=== PATIENT | female | born 1945 | race Caucasian/White ===

== ENCOUNTER → 2018-06-22 12:26 | Outpatient (CLI) | payer MEDICARE, SELFPAY ==
--- NOTE | 2018-06-22 12:33 | XR_ITS ---
XR DEXA axial skeleton HISTORY: ITS.REASON: POST MENOPAUSAL ORDERING PHYSICIAN: Halie Ochoa PATIENT AGE: 73 years COMPARISON: None FINDINGS: The BMD measured at the AP Spine L1-L4 is 0.855 g/cm squared with a T score of -2.7 . This is considered Osteoporotic according to the World Health Organization criteria. Fracture risk is High. Treatment is advised. IMPRESSION: Osteoporosis with high fracture risk. Treatment suggested. Recommend follow-up exam June 2019
--- NOTE | 2018-06-22 12:42 | MM_ITS ---
MM Dig screening mamm BI w/CAD ORDERING PHYSICIAN : Halie Ochoa PATIENT AGE: 73 years GENDER: Female COMPARISON: No prior for comparison Previous studies 20 years ago have been purged INDICATION: ITS.REASON: SCREENING 73-year-old. No hormones. No new complaints. Family history. Sister with breast cancer age 60 TECHNIQUE: Standard CC and MLO images were obtained. R2 CAD reviewed. FINDINGS: Moderate density breast. Fibroglandular elements seen at the central breast appear recently symmetric and with no dominant mass nor suspicious calcifications. No prior studies for comparison but no suspicious areas identified. It minimal vascular calcifications bilaterally but follow-up in one year adequate but would be encouraged and emphasized to better confirm stable baseline character . IMPRESSION: Baseline mammogram-with no focal areas of significant concern. What appear to be benign vascular calcifications bilaterally. Would encourage bilateral follow-up in one year, in order to additionally confirm stable baseline character BI-RADS Category: 2 Benign Finding(s) RECOMMENDED FOLLOW-UP: 1YR 1 YEAR FOLLOW-UP (A letter has been sent to the patient regarding results of the study.)
== END ==
PROVIDERS: Family Provider Nurse Practitioner; PCP Nurse Practitioner; Visit Provider Nurse Practitioner
DX: Z12.31 Encounter for screening mammogram for malignant neoplasm of breast (principal); Z13.820 Encounter for screening for osteoporosis; Z78.0 Asymptomatic menopausal state
CPT/HCPCS: 77067; 77080

== ENCOUNTER → 2018-07-13 10:13 | Outpatient (CLI) | payer MEDICARE, SELFPAY ==
[2018-07-13 10:33] LABS: Basophils # 0.1 K/mm3 (0-0.2); Basophils % 0.9 % (0.1-2.0); Eosinophils # 0.2 K/mm3 (0.0-0.4); Eosinophils % 2.8 % (0.1-12.0); Hematocrit 41.8 % (37.0-47.0); Hemoglobin 13.7 g/dL (12.2-16.2); Lymphocytes # 1.5 K/mm3 (0.7-4.5); Lymphocytes % 20.5 K/mm3 (10-50); Mean Corpuscular HGB Conc 32.7 g/dL (31.8-35.4); Mean Corpuscular Hemoglobin 31.2 pg (27.0-31.2); Mean Corpuscular Volume 95.5 fl (81-99); Monocytes # 0.5 K/mm3 (0.1-1.0); Monocytes % 6.3 % (1.7-9.3); Neutrophils # 5.2 K/mm3 (1.8-7.8); Neutrophils % 69.5 % (37.0-80.0); Platelet Count 189 K/mm3 (142-424); Red Blood Count 4.38 M/mm3 (4.20-5.40); Red Cell Distribution Width 14.2 % (11.5-17.5); White Blood Count 7.4 K/mm3 (4.8-10.8)
[2018-07-13 11:16] LABS: Anion Gap 12.6 mEq/L (5-15); Blood Urea Nitrogen 30 mg/dL (7-18); Calcium 8.9 mg/dL (8.5-10.1); Carbon Dioxide 30 mmol/L (21.0-32.0); Chloride 107 mmol/L (98-107); Creatinine,Serum 1.16 mg/dL (0.55-1.02); Estimated Glomerular Filt Rate 46 ml/min (>60); GFR (African American) 55 ML/MIN (>60); Glucose 105 mg/dL (74-106); Phenytoin (Dilantin) 19.9 ug/mL (10-20); Potassium 4.6 mmoL/L (3.5-5.1); Sodium 145 mmol/L (136-145)
== END ==
PROVIDERS: Family Provider Nurse Practitioner; PCP Nurse Practitioner; Visit Provider Surgery
DX: Z12.11 Encounter for screening for malignant neoplasm of colon (principal); Z01.818 Encounter for other preprocedural examination
CPT/HCPCS: 36415; 80048; 80185; 85025

== ENCOUNTER 2018-08-05 20:03 | Observation (INO) ==
[2018-08-05 20:27] LABS: Basophils % 0.6 % (0.1-2.0); Eosinophils # 0.2 K/mm3 (0.0-0.4); Eosinophils % 2.5 % (0.1-12.0); Hematocrit 41.4 % (37.0-47.0); Hemoglobin 13.6 g/dL (12.2-16.2); Lymphocytes # 1.7 K/mm3 (0.7-4.5); Mean Corpuscular Hemoglobin 30.8 pg (27.0-31.2); Mean Corpuscular Volume 93.5 fl (81-99); Mean Platelet Volume 7.8 fl (7.4-10.4); Monocytes # 0.5 K/mm3 (0.1-1.0); Monocytes % 6.2 % (1.7-9.3); Neutrophils # 5.2 K/mm3 (1.8-7.8); Neutrophils % 68.8 % (37.0-80.0); Platelet Count 201 K/mm3 (142-424); Red Blood Count 4.43 M/mm3 (4.20-5.40); Red Cell Distribution Width 14.2 % (11.5-17.5); White Blood Count 7.6 K/mm3 (4.8-10.8)
[2018-08-05 20:41] LABS: Anion Gap 11.6 mEq/L (5-15); Blood Urea Nitrogen 7 mg/dL (7-18); Calcium 9.4 mg/dL (8.5-10.1); Carbon Dioxide 31 mmol/L (21.0-32.0); Chloride 99 mmol/L (98-107); Glucose 110 mg/dL (74-106); Phenytoin (Dilantin) 12.6 ug/mL (10-20); Potassium 3.6 mmoL/L (3.5-5.1); Sodium 138 mmol/L (136-145)
--- NOTE | 2018-08-05 21:01 | Emergency Department Note ---
ED Disposition Clinical Impression: Chest pain Qualifiers: Chest pain type: precordial pain Qualified Code(s): R07.2 - Precordial pain Disposition: Admitted as Observation Condition on Discharge: Good Referrals: Renee Lagunas MD [Primary Care Provider] - - Critical Care Critical Care Time: No Attestation: On 08/05/18, the high probability of a clinically significant, sudden or life threatening deterioration of the following system(s) required my full and direct attention, intervention and personal management. The time I documented below is in addition to time spent performing reported procedures but includes the following listed in this critical care notation. Medical Decision Making - Medical Records Medical records reviewed: Yes: I reviewed the patient's medical records. - Anibal Inquiry Pt receiving controlled substance: No Vital Signs: 08/05/18 20:04 08/05/18 20:05 08/05/18 20:37 Temperature 97.8 F Temperature Source Oral Pulse Rate [Right] 66 66 65 Respiratory Rate 18 20 20 Blood Pressure [Right Arm] 128/58 L 132/62 130/80 Blood Pressure Mean [Right Arm] 81 85 96 Blood Pressure Source [Right Arm] Manual Cuff/ Auscultation Blood Pressure Position [Right Arm] Supine 02 Sat by Pulse Oximetry 98 99 96 Oxygen Delivery Method Room Air Room Air - Lab Data Lab results reviewed: Yes: I reviewed the patient's lab results. Lab Results 08/05/18 20:16: WBC 7.6, RBC 4.43, Hgb 13.6, Hct 41.4, MCV 93.5, MCH 30.8, MCHC 33.0, RDW 14.2, Plt Count 201, MPV 7.8, Neut % (Auto) 68.8, Lymph % (Auto) 22.0, [place] % (Auto) 6.2, Eos % (Auto) 2.5, Baso % (Auto) 0.6, Neut # (Auto) 5.2, Lymph # (Auto) 1.7, [place] # (Auto) 0.5, Eos # (Auto) 0.2, Baso # (Auto) 0.0 08/05/18 20:16: Sodium 138, Potassium 3.6, Chloride 99, Carbon Dioxide 31, Anion Gap 11.6, BUN 7, Creatinine 0.86, Estimated Creat Clear 48, Estimated GFR 65, Est GFR ( Amer) 78, Glucose 110 H, Calcium 9.4, Troponin I < 0.02, Phenytoin 12.6 Result diagrams: 08/05/18 20:16 08/05/18 20:16 Orders (Tests/Meds): ED MEDICATIONS Discontinued Medications Generic Name Dose Route Start Last Admin Trade Name Margot PRN Reason Stop Dose Admin Aspirin 325 mg 08/05/18 20:13 08/05/18 20:18 Aspirin 325mg Tablet PO 08/05/18 20:14 Not Given ONCE ONE Aspirin 324 mg 08/05/18 20:16 08/05/18 20:17 Aspirin 81mg Chewable Tablet PO 08/05/18 20:17 324 mg ONCE ONE Administration Nitroglycerin 1 gm 08/05/18 20:48 08/05/18 20:50 Nitroglycerin 1 Inch Oint Udp TD 08/05/18 20:49 1 gm ONCE ONE Administration ORDERS Category Date Time Status Chest XR 2 view (NOT portable) [XR chest 2V] Stat Exams 08/05/18 20:10 Taken 12-lead EKG Request [ECG Request by /Mila] Stat Y 08/05/18 20:13 Ordered - Radiology Data #1 Image(s): Chest Image Reviewed: Yes I reviewed the patient's radiology image Preliminary Findings: Abnormal (nonspecific) - ECG Data Tracing #1 Normal Sinus Rhythm: Yes Ischemic changes: non-specific ST-T wave changes - Physician Consults Physician Consulted: carmenza Reason -: Admission Chest Pain HPI - General Chief Complaint: Chest Pain Stated Complaint: Chest pain Time Seen by Provider: 08/05/18 20:58 Mode of Arrival: Ambulatory Source of Information: Patient, Relative, Medical Record Limitations: No Limitations Description of Symptoms (Recalled from ER Triage Doc. by RN): Pt c/o CP in the left side of her chest that started at 1830 today, pt states she was just sitting there and it started. Denies N/V, sweating, or dizziness. - History of Present Illness HPI narrative: acute onset of lt ant chest pain described as sharp - which is new with no known hx of card disease- no cough or sob MD complaint: chest pain indicative of cardiac Onset (ago): hour(s) Duration: constant Activity at onset: during rest Pain location: left chest Severity: moderate Quality: sharp Risk Factors for CAD: Hypertension, Family Hx of CAD Treatments prior to or on arrival for Cardiac Chest Pain: none - BENEDICT Score Non-Stemi Age of patient: 65 yrs or more Number of risk factors for CAD: Presence of less than 3 Prior coronary artery stenosis(seen in coronary angiography): Less than 50% ST-Segment deviation on ECG (more than 1 min): Absent Prior aspirin intake: No ASA in the last 7 days Severe anginal chest pain: No or one episode in last 24 hours Elevated cardiac markers(CK-MB or troponin): Absent Non-Stemi Risk Score: 1 - Related Data On Oral Contraceptives: No Home Medications Medication Instructions Recorded Confirmed acebutolol 200 mg capsule 200 mg PO DAILY 07/13/18 08/05/18 cyanocobalamin (vit B-12) ER 1,000 1,000 mcg PO DAILY 07/13/18 08/05/18 mcg tablet,extended release ergocalciferol (vitamin D2) 2,500 2,500 unit PO DAILY 07/13/18 08/05/18 unit capsule levothyroxine 25 mcg capsule 25 mcg PO DAILY 07/13/18 08/05/18 lisinopril 20 1 tab PO DAILY 07/13/18 08/05/18 mg-hydrochlorothiazide 12.5 mg tablet oxybutynin chloride ER 10 mg 10 mg PO DAILY 07/13/18 08/05/18 tablet,extended release 24 hr phenobarbital 32.4 mg tablet 32.4 mg PO DAILY PRN 07/13/18 08/05/18 phenytoin sodium extended 100 mg 100 mg PO TID 07/13/18 08/05/18 capsule vitamins A,C,V-eufc-sxxhjt 14,320 1 cap PO BID 07/13/18 08/05/18 unit-226 mg-200 unit capsule [id number]/Sod Sulf,Bicarb,Cl/KCl 240 ml PO Q10M 08/03/18 08/05/18 [Peg-3350 and Electrolytes Soln] Allergies Allergy/AdvReac Type Severity Reaction Status Date / Time atorvastatin [ATORVASTATIN] Allergy Unknown NA-NAUSEA/V Verified 08/03/18 09:03 OMITING hydrochlorothiazide Allergy Unknown Verified 08/03/18 09:03 [From MAXZIDE] triamterene [From MAXZIDE] Allergy Unknown Verified 08/03/18 09:[address] [facility] History I have reviewed the patient's past medical history: Yes Medical History: Reports:: Cerebrovascular Accident (2010), Hypertension, Seizures Other Medical History: Reports: Other (man-cpap hs) Laterality Cases: Bilateral: Lumpectomy Other Surgeries: Yes: Appendectomy, , Other - Social History Smoking Status: Former smoker Alcohol Intake: never Substance Use Type: denies use - Psychiatric History Expresses thoughts of harming self/others: None Suicide Plan Description: No Plan Family Hx:: No significant family history ROS Obtained: Yes All systems reviewed & no additional complaints - Constitutional Constitutional: Denies fever(s) - Eyes Eyes: Denies change in vision - ENT Ears, Nose, Mouth, and Throat: Denies sore throat - Cardiovascular Cardiovascular: Reports chest pain, Denies dyspnea - Respiratory Respiratory: No cough - Gastrointestinal Gastrointestingal: Denies: abdominal pain, nausea, vomiting - Genitourinary Female Genitourinary: Denies hematuria - Musculoskeletal Musculoskeletal: Denies joint pain, Denies neck pain - Integumentary/Breasts Skin/Breast: Denies rash - Neurologic Neurologic: Denies seizure-like activity Physical Exam - General General appearance: alert - Head Head exam: normocephalic - Eye Eye exam: Present: PERRL, EOMI - ENT ENT exam: Present: mucous membranes moist - Neck Neck exam: Present: trachea midline - Respiratory Respiratory exam: Present: normal lung sounds bilaterally - Cardiovascular Cardiovascular exam: Present: regular rate, systolic murmur, +S4 - Abdominal Exam Abdominal exam: Present: soft - Extremities Exam Extremities exam: Present: pedal edema. Absent: calf tenderness - Neurological Exam Neurological exam: Present: alert, oriented X3, CN II-XII intact - Psychiatric Psychiatric exam: Present: normal affect - Skin Skin exam: Absent: rash
[2018-08-06 07:02] LABS: Basophils % 0.3 % (0.1-2.0); Eosinophils # 0.1 K/mm3 (0.0-0.4); Eosinophils % 0.8 % (0.1-12.0); Hematocrit 30.9 % (37.0-47.0); Lymphocytes # 1.5 K/mm3 (0.7-4.5); Lymphocytes % 21.6 K/mm3 (10-50); Mean Corpuscular HGB Conc 32.8 g/dL (31.8-35.4); Mean Corpuscular Hemoglobin 31.2 pg (27.0-31.2); Mean Corpuscular Volume 94.9 fl (81-99); Monocytes # 0.4 K/mm3 (0.1-1.0); Monocytes % 6.4 % (1.7-9.3); Neutrophils # 4.8 K/mm3 (1.8-7.8); Neutrophils % 70.9 % (37.0-80.0); Platelet Count 179 K/mm3 (142-424); Red Blood Count 3.25 M/mm3 (4.20-5.40); Red Cell Distribution Width 14.2 % (11.5-17.5); White Blood Count 6.8 K/mm3 (4.8-10.8)
[2018-08-06 07:05] LABS: Anion Gap 9.7 mEq/L (5-15); Chol/HDL Ratio 2.1 (1-3.5); Potassium 3.7 mmoL/L (3.5-5.1)
--- NOTE | 2018-08-06 07:12 | History & Physical Report ---
*Admission Date: 08/06/18 *Chief complaint: Left sided chest pain *History of present illness: 73-year-old female with history of hypertension presented to the emergency department with complaint of left sided chest pain in the left lower anterior chest radiating around to the left ribs and up to the shoulder. Onset of pain was 6:30 PM. After pain did not resolve for 30 minutes patient assented to the emergency department. When patient lies flat pain resolves. We sits up pain returns. Pain is described as an ache. She is short of breath or diaphoresis. Patient did go colonoscopy yesterday and actually thought pains may be related to gas. She has not bowel movement nor flatus since her colonoscopy. She did not complain of any pain overnight but did endorse some pain earlier morning upon waking [facility] History I have reviewed the patient's past medical history: Yes Medical History: Reports:: Cerebrovascular Accident (2009), Hypertension, Seizures Denies:: Cancer, Diabetes Mellitus Type 1, Diabetes Mellitus Type 2, MRSA Other Medical History: Reports: Other (man-cpap hs) Laterality Cases: Bilateral: Lumpectomy Other Surgeries: Yes: Appendectomy, Colonoscopy, , Other Amputation: No - *Social History Educational Level: Completed Grade School Smoking Status: Former smoker Tobacco Type: cigarettes Alcohol Intake: never Substance Use Type: denies use Occupational Status: retired Housing: house Household Members: spouse - Psychiatric History Expresses thoughts of harming self/others: None Suicide Plan Description: No Plan *Family Hx:: No significant family history Review of Systems - Review of Systems Review of systems:: pertinent systems reviewed and negative unless documented below - Constitutional Denies anorexia, Denies body ache(s), Denies chills - *Cardiovascular Reports chest pain, Reports chest pain at rest, Denies shortness of breath, Denies shortness of breath with activity, Denies irregular heart rhythm, Denies lightheadedness, Denies shortness of breath when lying down, Denies rapid, pounding, or irregular heartbeat, Denies shortness of breath causing sudden awakening, Denies foot swelling, Denies radiating jaw, neck or arm pain, Denies fast heart rate - *Respiratory Denies chest congestion, Denies cough - *Gastrointestinal Denies abdominal pain, Denies belching, Denies bloating, Denies change in bowel habits, Denies heartburn - *Neurologic Denies seizure-like activity Meds Home Medications Medication Instructions Recorded Confirmed Type acebutolol 200 mg capsule 200 mg PO DAILY 07/13/18 08/05/18 History cyanocobalamin (vit B-12) ER 1,000 1,000 mcg PO DAILY 07/13/18 08/05/18 History mcg tablet,extended release ergocalciferol (vitamin D2) 2,500 2,500 unit PO DAILY 07/13/18 08/05/18 History unit capsule levothyroxine 25 mcg capsule 25 mcg PO DAILY 07/13/18 08/05/18 History lisinopril 20 1 tab PO DAILY 07/13/18 08/05/18 History mg-hydrochlorothiazide 12.5 mg tablet oxybutynin chloride ER 10 mg 10 mg PO DAILY 07/13/18 08/05/18 History tablet,extended release 24 hr phenobarbital 32.4 mg tablet 32.4 mg PO DAILY PRN 07/13/18 08/05/18 History phenytoin sodium extended 100 mg 100 mg PO TID 07/13/18 08/05/18 History capsule vitamins A,C,W-iisw-qxxdah 14,320 1 cap PO BID 07/13/18 08/05/18 History unit-226 mg-200 unit capsule [id number]/Sod Sulf,Bicarb,Cl/KCl 240 ml PO Q10M 08/03/18 08/05/18 History [Peg-3350 and Electrolytes Soln] Allergies Allergy/AdvReac Type Severity Reaction Status Date / Time atorvastatin [ATORVASTATIN] Allergy Unknown NA-NAUSEA/V Verified 08/03/18 09:03 OMITING hydrochlorothiazide Allergy Unknown Verified 08/03/18 09:03 [From MAXZIDE] triamterene [From MAXZIDE] Allergy Unknown Verified 08/03/18 09:03 Exam Vital signs and Labs for Last 24 Hours: Temp Pulse Resp BP Pulse Ox 97.8 F 72 14 85/37 L 88 L 08/06/18 05:06 08/06/18 05:06 08/06/18 05:06 08/06/18 05:06 08/06/18 05:06 Laboratory Results - last 24 hr 08/05/18 20:16: WBC 7.6, RBC 4.43, Hgb 13.6, Hct 41.4, MCV 93.5, MCH 30.8, MCHC 33.0, RDW 14.2, Plt Count 201, MPV 7.8, Neut % (Auto) 68.8, Lymph % (Auto) 22.0, [place] % (Auto) 6.2, Eos % (Auto) 2.5, Baso % (Auto) 0.6, Neut # (Auto) 5.2, Lymph # (Auto) 1.7, [place] # (Auto) 0.5, Eos # (Auto) 0.2, Baso # (Auto) 0.0 08/05/18 20:16: Sodium 138, Potassium 3.6, Chloride 99, Carbon Dioxide 31, Anion Gap 11.6, BUN 7, Creatinine 0.86, Estimated Creat Clear 48, Estimated GFR 65, Est GFR ( Amer) 78, Glucose 110 H, Calcium 9.4, Troponin I < 0.02, Phenytoin 12.6 08/06/18 00:15: Troponin I < 0.02 08/06/18 03:15: Troponin I < 0.02 I & O for Last 24 hours: Intake & Output 08/03/18 08/04/18 08/05/18 08/06/18 11:59 11:59 11:59 11:59 Weight 133 lb Narrative: Patient is awake and alert. ENT exam is grossly normal. Neck is without lymphadenopathy. Lungs are clear to auscultation. Heart has a regular rate and rhythm. Abdomen is soft, nontender, nondistended wall is nontender. Extremities are warm to the touch. There is no pedal edema. Neurologic exam is grossly normal. Assessment and Plan (1) Hypertension Current visit: Yes Status: Acute Category: Medical Code(s): I10 - Essent ial (primary) hypertension (2) Chest pain Current visit: Yes Status: Acute Qualifiers: Chest pain type: precordial pain Qualified Code(s): R07.2 - Precordial pain Category: Medical Code(s): R07.9 - Chest pain, unspecified - Assessment and plan all Dx Assessment and Plan for all problems:: 1. Patient is ruled out for IA. Her chest pains are atypical. Proceed with Lexiscan stress test today. 2. Home medications low hold beta-abhay this morning for stress test
[2018-08-06 07:25] LABS: Calcium 8.2 mg/dL (8.5-10.1)
[2018-08-06 07:26] LABS: Hemoglobin 10.1 g/dL (12.2-16.2)
--- NOTE | 2018-08-06 07:52 | Pharmacy Consult Notes ---
[facility] Pharmacy VTE Monitoring - Patient Demographics Admission date: 08/05/18 Report Date: 08/06/18 Time: 07:51 Allergies/Adverse Reactions: Patient Allergies atorvastatin [ATORVASTATIN] Allergy (Unknown, Verified 08/03/18 09:03) NA-NAUSEA/VOMITING hydrochlorothiazide [From MAXZIDE] Allergy (Unknown, Verified 08/03/18 09:03) triamterene [From MAXZIDE] Allergy (Unknown, Verified 08/03/18 09:03) Height: 1.63 m Weight: 60.328 kg Patient Problems: Current Active Problems Chest pain (Acute) Hypertension (Acute) - VTE Risk Labs: VTE Related Lab Results Hgb 10.1 g/dL (12.2-16.2) L D 08/06/18 06:40 Hct 30.9 % (37.0-47.0) L 08/06/18 06:40 Plt Count 179 K/mm3 (142-424) 08/06/18 06:40 BUN 9 mg/dL (7-18) D 08/06/18 06:40 Creatinine 1.07 mg/dL (0.55-1.02) H D 08/06/18 06:40 Estimated Creat Clear 45 mL/min (0-300) 08/06/18 06:40 Was VTE Risk Assessment Performed: Yes VTE Score: 3 VTE Risk Level: Low Risk - Prophylaxis VTE Prophylaxis Ordered?: Yes Types of VTE Prophylaxis: TEDS Knee High Location of Applied Device: Bilateral Lower Extremeties - VTE Diagnosis Confirmed Treatment or plan recommended: Continue Current Treatment
--- NOTE | 2018-08-06 13:56 | Cardiology Report ---
PROCEDURE: 2-D M-mode and color Doppler study INDICATIONS FOR THE TEST: Chest pain COPD Heart Murmur Tobacco Smoking Palpitations Fatigue Syncope Edema Hypertension+Diabetes Mellitus Rheumatic Fever SOB MESA Obesity Hyperlipidemia Family History HD Additional History CVA 2009 PATIENT INFORMATION HEIGHT: 56 WEIGHT: GENDER: Female B/P:135 2-D/M-MODE INTERPRETATION: 2-D MEASUREMENTS OBSERVED VALUES IN CMS Right Ventricular Dimension (RVDd) 1.9 Interventricular Septum (Thickness)(IVsd) 1.4 Left Ventricular Internal Dimensions(LVIDd) 3.1 Left Ventricular Posterior Wall (Thickness)(LVPWd) 1.3 Aortic Root 3.4 Aortic Cusp Separation 1.8 Left Atrial Dimensions (LAD) 2.8 2D 1. Left atrium is mildly enlarged, left ventricle is normal size, mild concentric left ventricular hypertrophy, visually estimated ejection fraction 55% with no regional wall motion abnormality. 2. The right atrium and right ventricle are mildly enlarged with normal contractility. 3. The aortic valve is minimally thickened and calcified. 4. The mitral and tricuspid valve are grossly normal. 5. The pulmonic valve is poorly visualized. 6. No significant pericardial effusion noted. DOPPLER INTERROGATION: Doppler interrogation of the aortic, mitral and tricuspid valve reveals presence of mild mitral, trace aortic, and mild tricuspid regurgitation, calculated right ventricular systolic pressure is 50 mmHg consistent with moderate pulmonary hypertension. Grade 1 diastolic dysfunction seen with tissue Doppler evidence of raised left atrial pressure. CONCLUSION: 1. Mildly enlarged left atrium, normal left ventricular size, mild concentric left ventricular hypertrophy, visually estimated ejection fraction 55% with no regional wall motion abnormality, grade 1 diastolic dysfunction seen with tissue Doppler evidence of raised left atrial pressure. 2. Trace aortic, mild mitral and tricuspid regurgitation, calculated right ventricular systolic pressure is 50 mmHg consistent with moderate pulmonary hypertension. Right ventricle is mildly enlarged with normal contractility. 3. No significant pericardial effusion noted.
[2018-08-06 15:22] LABS: Hematocrit 28.5 % (37.0-47.0); Hemoglobin 9.7 g/dL (12.2-16.2)
--- NOTE | 2018-08-06 16:56 | Discharge Summary ---
General - General Admission date:: 08/05/18 Discharge date: 08/06/18 HPI HPI: 73-year-old female with history of hypertension presented to the emergency department with complaint of left sided chest pain in the left lower anterior chest radiating around to the left ribs and up to the shoulder. Onset of pain was 6:30 PM. After pain did not resolve for 30 minutes patient assented to the emergency department. When patient lies flat pain resolves. We sits up pain returns. Pain is described as an ache. She is short of breath or diaphoresis. Patient did go colonoscopy yesterday and actually thought pains may be related to gas. She has not bowel movement nor flatus since her colonoscopy. She did not complain of any pain overnight but did endorse some pain earlier morning upon waking Hospital Course Hospital Course: Patient was admitted. She ruled out for AR with serial enzymes. On the morning of August 06 patient underwent echocardiogram which showed ejection fraction of 55% with mild elevation of left ventricular end-diastolic pressure as well as increased right ventricular end-diastolic pressure consistent with pulmonary hypertension. Patient underwent Lexiscan stress testing which was negative for ischemia. On repeat labs the morning following admission patient's hemoglobin had gone from 13 down to 10. H&H was repeated on the afternoon and hemoglobin was 9.7. Patient had undergone a colonoscopy the day prior. While she had had a biopsy the patient denied passing any blood in her stool. Patient did not have a bowel movement while hospitalized. Patient was discharged home and will follow-up in my office on August 11 at 1 PM with my nurse practitioner. She will be started on a PPI Objective Vital signs: Temp Pulse Resp BP Pulse Ox 98.2 F 90 18 102/65 L 93 L 08/06/18 15:56 08/06/18 16:00 08/06/18 15:56 08/06/18 15:56 08/06/18 15:56 Results Labs on day of discharge: Labs from last 24 hours 08/06/18 08/06/18 08/06/18 15:20 06:40 06:40 WBC 6.8 RBC 3.25 L D Hgb 9.7 L 10.1 L D Hct 28.5 L 30.9 L MCV 94.9 MCH 31.2 MCHC 32.8 RDW 14.2 Plt Count 179 MPV 9.0 Neut % (Auto) 70.9 Lymph % (Auto) 21.6 [place] % (Auto) 6.4 Eos % (Auto) 0.8 Baso % (Auto) 0.3 Neut # (Auto) 4.8 Lymph # (Auto) 1.5 [place] # (Auto) 0.4 Eos # (Auto) 0.1 Baso # (Auto) 0.0 Sodium 138 Potassium 3.7 Chloride 101 Carbon Dioxide 31 Anion Gap 9.7 BUN 9 D Creatinine 1.07 H D Estimated Creat Clear 45 Estimated GFR 50 L Est GFR ( Amer) 61 D Glucose 121 H Calcium 8.2 L D Troponin I Triglycerides 64 Cholesterol 123 L LDL Cholesterol 52 VLDL Cholesterol 13 HDL Cholesterol 58 Cholesterol/HDL Ratio 2.1 Phenytoin 08/06/18 08/06/18 08/05/18 03:15 00:15 20:16 WBC RBC Hgb Hct MCV MCH MCHC RDW Plt Count MPV Neut % (Auto) Lymph % (Auto) [place] % (Auto) Eos % (Auto) Baso % (Auto) Neut # (Auto) Lymph # (Auto) [place] # (Auto) Eos # (Auto) Baso # (Auto) Sodium 138 Potassium 3.6 Chloride 99 Carbon Dioxide 31 Anion Gap 11.6 BUN 7 Creatinine 0.86 Estimated Creat Clear 48 Estimated GFR 65 Est GFR ( Amer) 78 Glucose 110 H Calcium 9.4 Troponin I < 0.02 < 0.02 < 0.02 Triglycerides Cholesterol LDL Cholesterol VLDL Cholesterol HDL Cholesterol Cholesterol/HDL Ratio Phenytoin 12.6 08/05/18 20:16 WBC 7.6 RBC 4.43 Hgb 13.6 Hct 41.4 MCV 93.5 MCH 30.8 MCHC 33.0 RDW 14.2 Plt Count 201 MPV 7.8 Neut % (Auto) 68.8 Lymph % (Auto) 22.0 [place] % (Auto) 6.2 Eos % (Auto) 2.5 Baso % (Auto) 0.6 Neut # (Auto) 5.2 Lymph # (Auto) 1.7 [place] # (Auto) 0.5 Eos # (Auto) 0.2 Baso # (Auto) 0.0 Sodium Potassium Chloride Carbon Dioxide Anion Gap BUN Creatinine Estimated Creat Clear Estimated GFR Est GFR ( Amer) Glucose Calcium Troponin I Triglycerides Cholesterol LDL Cholesterol VLDL Cholesterol HDL Cholesterol Cholesterol/HDL Ratio Phenytoin DS: Diagnosis - Discharge Diagnosis (1) Hypertension Status: Acute (2) Chest pain Status: Acute (3) Anemia Status: Acute Discharge Plan - Patient Discharge Instructions ACTIVITY: Continue current activity DIET: continue same diet - Follow up Plan Follow up with: Halie Ochoa APRN [Family Provider] - 08/11/18 1:00 pm Disposition: Home, Self-Senior Care Medications: Home Medications Medication Instructions Recorded Confirmed Type acebutolol 200 mg capsule 200 mg PO DAILY 07/13/18 08/05/18 History cyanocobalamin (vit B-12) ER 1,000 1,000 mcg PO DAILY 07/13/18 08/05/18 History mcg tablet,extended release levothyroxine 25 mcg capsule 25 mcg PO DAILY 07/13/18 08/05/18 History oxybutynin chloride ER 10 mg 10 mg PO DAILY 07/13/18 08/05/18 History tablet,extended release 24 hr phenobarbital 32.4 mg tablet 32.4 mg PO BID 07/13/18 08/06/18 History phenytoin sodium extended 100 mg 100 mg PO BID 07/13/18 08/06/18 History capsule vitamins A,C,T-sewy-ugdzbs 14,320 1 cap PO BID 07/13/18 08/05/18 History unit-226 mg-200 unit capsule [id number]/Sod Sulf,Bicarb,Cl/KCl 240 ml PO Q10M 08/03/18 08/05/18 History [Peg-3350 and Electrolytes Soln] Diphenoxylate HCl/Atropine 1 tab PO QIDP PRN 08/06/18 08/06/18 History [Lomotil 2.5mg tablet] Ergocalciferol (Vitamin D2) 50,000 unit PO DIRECTED 08/06/18 08/06/18 History [Vitamin D2] Lisinopril/Hydrochlorothiazide 1 tab PO DAILY 08/06/18 08/06/18 History [Lisinopril-Hctz 20-25 mg Tab] Prescriptions/Medication Reconciliation: New Omeprazole [Omeprazole 20mg Capsule] 20 mg PO DAILY #30 cap Continue vitamins A,C,W-gkfv-jeoqca 14,320 unit-226 mg-200 unit capsule 1 cap PO BID cyanocobalamin (vit B-12) ER 1,000 mcg tablet,extended release 1,000 mcg PO DAILY phenobarbital 32.4 mg tablet 32.4 mg PO BID phenytoin sodium extended 100 mg capsule 100 mg PO BID oxybutynin chloride ER 10 mg tablet,extended release 24 hr 10 mg PO DAILY levothyroxine 25 mcg capsule 25 mcg PO DAILY acebutolol 200 mg capsule 200 mg PO DAILY [id number]/Sod Sulf,Bicarb,Cl/KCl [Peg-3350 and Electrolytes Soln] 240 ml PO Q10M Ergocalciferol (Vitamin D2) [Vitamin D2] 50,000 unit PO DIRECTED Lisinopril/Hydrochlorothiazide [Lisinopril-Hctz 20-25 mg Tab] 1 tab PO DAILY Diphenoxylate HCl/Atropine [Lomotil 2.5mg tablet] 1 tab PO QIDP PRN PRN Reason: Diarrhea
== END 2018-08-06 17:40 | disposition home or self-care (01) ==
LOC: 2ND 20:03 → ER 20:03 → 2ND 21:33
PROVIDERS: ADMIT Family Medicine; ATTEND Family Medicine

== ENCOUNTER → 2019-02-16 14:23 | Outpatient (CLI) | payer MEDICARE, SELFPAY ==
--- NOTE | 2019-02-16 14:29 | XR_ITS ---
EXAM: XR lumbar spine min 4V HISTORY: ITS.REASON: LOW BACK PAIN ORDERING PHYSICIAN: Halie Ochoa PATIENT AGE: 74 years COMPARISON: 06/07/2015 FINDINGS: Mild lumbar scoliosis convex right. Multilevel degenerative disc disease from T12 to S1.. No acute fracture or dislocation is evident. Generalized vascular calcifications noted. IMPRESSION: Degenerative changes of the lumbar spinal scoliosis. The degenerative disc disease at L2-L3 appear slightly worse with no other significant changes evident
== END ==
PROVIDERS: PCP Nurse Practitioner; Visit Provider Nurse Practitioner
DX: M54.40 Lumbago with sciatica, unspecified side (principal)
CPT/HCPCS: 72110

== ENCOUNTER → 2019-08-10 10:44 | Outpatient (CLI) | payer MEDICARE, SELFPAY ==
--- NOTE | 2019-08-10 10:49 | MM_ITS ---
PROCEDURE: MM DIG SCREENING MAMM BI W/CAD Patient Age:74Y CLINICAL INDICATION: SCREENING no hormones. No new complaints. Patient reports previous breast surgery right breast. With scar 12 o'clock noted by technologist Family history. Sister with breast cancer in her 60s COMPARISON: [facility] MM Dig screening mamm BI w/CAD from 06/22/2018 TECHNIQUE: Standard CC and MLO images were obtained. R2 CAD reviewed. additional nipple profile right MLO and additional axillary CC views bilaterally additional FINDINGS: No significant new findings compared to prior studies. Again see moderately dense breast tissue, distributed throughout the central cone of both breast. No dominant or suspicious mass, no suspicious calcifications. Right breast are some small punctate benign-appearing calcifications along with vascular calcifications evident but these appear benign and stable Left breast:. No new areas of significant concern. Minor tiny subtle area of nodularity laterally is unchangedsince prior study. IMPRESSION: Stable bilateral mammogram with no significant new areas concern . Bilateral follow-up 1 year recommended Moderately dense breast BI-RAD Category: 2 Benign Finding(s) FOLLOW-UP: 1YR 1 Year Follow-up (A letter has been sent to the patient regarding results of the study.) Dictated by: Dawit Mitchell MD 08/12/2019 09:27 Electronically signed by Dawit Mitchell MD in [place] 08/16/2019 10:25
== END ==
PROVIDERS: PCP Nurse Practitioner; Visit Provider Nurse Practitioner
DX: Z12.31 Encounter for screening mammogram for malignant neoplasm of breast (principal)
CPT/HCPCS: 77067

== ENCOUNTER → 2021-08-29 17:28 | Outpatient (CLI) | payer MEDICARE, SELFPAY | PROVIDERS: PCP Family Medicine; Visit Provider Nurse Practitioner | DX: Z20.822 Contact with and (suspected) exposure to COVID-19 (principal) | CPT/HCPCS: C9803; U0003; U0005 ==

== ENCOUNTER 2021-08-31 16:49 | Observation (INO) | payer MEDICARE, SELFPAY ==
[2021-08-31] VITALS (12 sets, daily range): BP systolic 71–100; BP diastolic 42–62; PULSE 84–99; RESP 16–27; TEMP 36.8–37; O2SAT 91–99; BMI 24.0; BMI 24.2; BMI 26.4
--- NOTE | 2021-08-31 17:04 | XR_ITS ---
PROCEDURE INFORMATION: Exam: XR Chest Exam date and time: 08/31/2021 5:04 PM Age: 76 years old Clinical indication: Cough and shortness of breath; Additional info: SOA, cough TECHNIQUE: Imaging protocol: XR of the chest. Views: 2 views. COMPARISON: CR CXR2V XR chest 2V 08/05/2018 8:23 PM FINDINGS: Lungs: New patchy airspace opacities in the lower lobes and right middle lobe, compared with the prior exam, correlate for bilateral pneumonia. Borderline pulmonary hyperinflation, slight flattening of diaphragms noted on the lateral view. Pleural spaces: Mild bilateral apical pleural thickening/scarring chronic compared with the prior study. No significant pleural effusion. No pneumothorax. Heart/Mediastinum: The cardiac silhouette is normal. Bones/joints: There are spinal degenerative changes, with multilevel disc narrrowing and spondylosis. Osteopenia. Mild thoracolumbar scoliosis. Soft tissues: No acute findings in the soft tissues. IMPRESSION: Patchy airspace disease in the lower lungs and right middle lobe, correlate for pneumonia or less likely edema.
--- NOTE | 2021-08-31 17:19 | HMH.EDUTC ---
[facility] Disposition Clinical Impression: Pneumonia Qualifiers: Pneumonia type: due to unspecified organism Laterality: bilateral Lung location: unspecified part of lung Qualified Code(s): J18.9 - Pneumonia, unspecified organism Disposition: Still a Patient Condition on Discharge: Good Referrals: Svetlana Mejias APRN [Primary Care Provider] - Time of Disposition: 18:07 (report to ed dr) Medical Decision Making - Anibal Inquiry Pt receiving controlled substance: No Vital Signs: 08/31/21 16:55 08/31/21 16:57 Temperature 98.6 F 98.6 F Temperature Source Oral Oral Pulse Rate [Right] 99 H 84 Respiratory Rate 27 H 16 Blood Pressure [Right Arm] 100/60 L 100/60 L Blood Pressure Mean [Right Arm] 73 73 Blood Pressure Source [Right Arm] Automatic Cuff Automatic Cuff Blood Pressure Position [Right Arm] Sitting Sitting 02 Sat by Pulse Oximetry 91 L 95 Oxygen Delivery Method Room Air Room Air Orders (Tests/Meds): ED MEDICATIONS Discontinued Medications Generic Name Dose Route Start Last Admin Trade Name Freq PRN Reason Stop Dose Admin Albuterol Sulfate 2.5 mg 08/31/21 17:37 08/31/21 17:44 Albuterol 0.083% 2.5 Mg/3 Ml Neb IH 08/31/21 17:38 2.5 mg ONCE ONE Administration ORDERS Category Date Time Status Rapid PCR Covid and Flu A/B Stat Lab 08/31/21 17:28 Received - Physician Consults Physician Consulted: ed md Time: 18:09 Reason -: Pt condition Comment/Response: discussed pt with md [facility] HPI - General Chief complaint: Urgent [facility] Stated complaint: sore throat,cough.SOB,MAZARIEGOS congestion Time Seen by Provider: 08/31/21 18:04 Mode of Arrival: Ambulatory Source of Information: Patient Limitations: No Limitations Description of Symptoms (Recalled from Triage Doc. by RN): pt advises she has been feeling bad for a couple of days. Cough, sore throat, was started on zpack and that didn't help. In room pt c/o soa and o2 sats 90-93%. breathing treatment and o2 placed - History of Present Illness Provider Complaint: 76 yr old female presents for cough and soa, she has been feeling bad for a couple of days. Cough, sore throat, was started on zpack andd finished. pt states that didn't help. Wants a chest x-ray to make sure she doesn't have pneumonia. - Related Data Home Medications Medication Instructions Recorded Confirmed acebutolol 200 mg capsule 200 mg PO DAILY 07/13/18 08/25/18 cyanocobalamin (vitamin B-12) 1,000 mcg PO DAILY 07/13/18 08/25/18 1,000 mcg tablet,extended release levothyroxine 25 mcg capsule 25 mcg PO DAILY 07/13/18 08/25/18 oxybutynin chloride 10 mg 10 mg PO DAILY 07/13/18 08/25/18 tablet,extended release 24 hr phenobarbital 32.4 mg tablet 32.4 mg PO BID 07/13/18 08/25/18 phenytoin sodium extended 100 mg 100 mg PO BID 07/13/18 08/25/18 capsule vitamins A,C,Z-pwhl-znqjjb 14,320 1 cap PO BID 07/13/18 08/25/18 unit-226 mg-200 unit capsule [id number]/Sod Sulf,Bicarb,Cl/KCl 240 ml PO Q10M 08/03/18 08/25/18 [Peg-3350 and Electrolytes Soln] Diphenoxylate HCl/Atropine 1 tab PO QIDP PRN 08/06/18 08/25/18 [Lomotil 2.5mg tablet] Ergocalciferol (Vitamin D2) 50,000 unit PO DIRECTED 08/06/18 08/25/18 [Vitamin D2] Lisinopril/Hydrochlorothiazide 1 tab PO DAILY 08/06/18 08/25/18 [Lisinopril-Hctz 20-25 mg Tab] Previous Rx's Medication Instructions Recorded Omeprazole [Omeprazole 20mg 20 mg PO DAILY #30 cap 08/06/18 Capsule] Allergies Allergy/AdvReac Type Severity Reaction Status Date / Time atorvastatin [ATORVASTATIN] Allergy Unknown NA-NAUSEA/V Verified 08/25/18 12:55 OMITING hydrochlorothiazide Allergy Unknown Verified 08/25/18 12:55 [From MAXZIDE] triamterene [From MAXZIDE] Allergy Unknown Verified 08/25/18 12:55 - Worker's Comp Is this a Worker's Comp case?: No [facility] History - Hepatitis A Screen Drug use history?: No High risk sexual behaviors?: No History of sexually transmitted infection?: No Currently em
[2021-08-31 17:44] LABS: Coronavirus 19, PCR Not Detected (NotDetected); Influenza A, PCR Not Detected (NotDetected); Influenza B, PCR Not Detected (NotDetected)
--- NOTE | 2021-08-31 18:16 | PC.NURSE ---
PT brought over from [facility] with pneumonia. Ezequiel spoke with Dr. Degroot who agreed to admit pt for Dr. Navarro. PT brought over to room 5
--- NOTE | 2021-08-31 18:29 | HMH.EDSOB ---
ED Disposition Clinical Impression: Pneumonia Qualifiers: Pneumonia type: due to unspecified organism Laterality: bilateral Lung location: unspecified part of lung Qualified Code(s): J18.9 - Pneumonia, unspecified organism Disposition: Admitted As Inpatient Condition on Discharge: [facility] Critical Care Critical Care Time: No Attestation: On 08/31/21, the high probability of a clinically significant, sudden or life threatening deterioration of the following system(s) required my full and direct attention, intervention and personal management. The time I documented below is in addition to time spent performing reported procedures but includes the following listed in this critical care notation. Medical Decision Making - Anibal Inquiry Pt receiving controlled substance: No Vital Signs: 08/31/21 16:55 08/31/21 16:57 08/31/21 17:55 Temperature 98.6 F 98.6 F Temperature Source Oral Oral Pulse Rate [Right] 99 H 84 Respiratory Rate 27 H 16 Blood Pressure [Right Arm] 100/60 L 100/60 L Blood Pressure Mean [Right Arm] 73 73 Blood Pressure Source [Right Arm] Automatic Cuff Automatic Cuff Blood Pressure Position [Right Arm] Sitting Sitting 02 Sat by Pulse Oximetry 91 L 95 93 L Oxygen Delivery Method Room Air Room Air Room Air Oxygen Flow Rate (LPM) 08/31/21 17:57 Temperature Temperature Source Pulse Rate [Right] Respiratory Rate Blood Pressure [Right Arm] Blood Pressure Mean [Right Arm] Blood Pressure Source [Right Arm] Blood Pressure Position [Right Arm] 02 Sat by Pulse Oximetry 95 Oxygen Delivery Method Nasal Cannula Oxygen Flow Rate (LPM) 2 - Lab Data Lab Results 08/31/21 17:28: SARS-CoV-2 (PCR) Not detected, Influenza A Untype (PCR) Not detected, Influenza Type B (PCR) Not detected Orders (Tests/Meds): ED MEDICATIONS Generic Name Dose Route Start Last Admin Trade Name Freq PRN Reason Stop Dose Admin Ceftriaxone Sodium 1 gm/ 50 mls @ 100 mls/hr 08/31/21 18:30 Sodium Chloride IV 09/14/21 18:29 Q24H GWEN Discontinued Medications Generic Name Dose Route Start Last Admin Trade Name Freq PRN Reason Stop Dose Admin Albuterol Sulfate 2.5 mg 08/31/21 17:37 08/31/21 17:44 Albuterol 0.083% 2.5 Mg/3 Ml Neb IH 08/31/21 17:38 2.5 mg ONCE ONE Administration Ceftriaxone Sodium 1 gm 08/31/21 18:19 Ceftriaxone 1gm Vial IM 08/31/21 18:20 ONCE ONE Lidocaine HCl 0 ml 08/31/21 18:19 Lidocaine 1% 5ml Pf Vial IM 08/31/21 18:20 ONCE ONE ORDERS Category Date Time Status Complete Blood Count Auto Diff Stat Lab 08/31/21 18:16 Ordered Comprehensive Metabolic Panel Stat Lab 08/31/21 18:16 Ordered Blood Culture Stat Micro 08/31/21 18:16 Ordered Medical Decision Narrative: In summary, the patient is a 76-year-old female with hypothyroidism, seizure disorder, hypertension who presents for evaluation of 1 week of progressive dyspnea and productive cough. She is in no acute distress, afebrile and hemodynamically stable, nontoxic in appearance. Physical exam demonstrates comfortable appearing female with oxygen saturation in the upper 80s and low 90s with talking and ambulation, rhonchorous breath sounds in the right lower lung field, otherwise hemodynamically stable and afebrile. Otherwise physical exam is unremarkable. Differential diagnosis includes was not limited to bacterial pneumonia, COVID-19, other viral respiratory infection. Will obtain basic laboratory analysis, chest x-ray, and EKG, place the patient on supplemental oxygen and reassess clinically. She was evaluated initially at urgent treatment center, given breathing treatment without significant improvement. Reassessment: Chest x-ray demonstrates airspace disease concerning for pneumonia. Urgent treatment center provider spoke with Dr. Degroot, and will admit under Dr. Navarro for community-acquired pneumonia and new oxygen requirement. IV Rocephin was administered. Blood cultu
[2021-08-31 18:53] LABS: Basophils # 0.1 K/mm3 (0-0.2); Basophils % 0.4 % (0.1-2.0); Eosinophils # 0.1 K/mm3 (0.0-0.4); Eosinophils % 0.8 % (0.1-12.0); Hematocrit 42.9 % (37.0-47.0); Hemoglobin 13.6 g/dL (12.2-16.2); Lymphocytes # 2.1 K/mm3 (0.7-4.5); Lymphocytes % 15.1 % (10-50); Mean Corpuscular HGB Conc 31.6 g/dL (31.8-35.4); Mean Corpuscular Hemoglobin 32.5 pg (27.0-31.2); Mean Corpuscular Volume 102.8 fl (81-99); Mean Platelet Volume 9.3 fl (7.4-10.4); Monocytes # 0.9 K/mm3 (0.1-1.0); Monocytes % 6.4 % (1.7-9.3); Neutrophils # 10.9 K/mm3 (1.8-7.8); Neutrophils % 77.3 % (37.0-80.0); Platelet Count 203 K/mm3 (142-424); Red Blood Count 4.17 M/mm3 (4.20-5.40); White Blood Count 14.1 K/mm3 (4.8-10.8)
[2021-08-31 19:01] LABS: Chloride 102 mmol/L (98-107); Potassium 4.9 mmoL/L (3.5-5.1); Sodium 139 mmol/L (136-145)
[2021-08-31 19:03] LABS: Blood Urea Nitrogen 27 mg/dl (7-17); Creatinine Clearance Estimated 34 mL/min (50-200); Estimated Glomerular Filt Rate 44 ml/min (>60); GFR (African American) 53 ML/MIN (>60)
[2021-08-31 19:04] LABS: Alanine Aminotransferase 11 U/L (12-78); Albumin Level 4.1 g/dl (3.5-5.0); Albumin/Globulin Ratio 1.2 (1.1-1.8); Alkaline Phosphatase 89 U/L (38-126); Aspartate Amino Transferase 23 U/L (14-36); Bilirubin,Total 0.7 mg/dl (0.2-1.3); Carbon Dioxide 28 mmol/L (22.0-30.0); Globulin 3.5 g/dL (1.3-3.2); Total Protein,Serum 7.6 g/dl (6.3-8.2)
[2021-08-31 19:05] LABS: Calcium 9.4 mg/dl (8.4-10.2); Glucose 131 mg/dl (74-100)
--- NOTE | 2021-08-31 20:43 | PC.NURSE ---
pt admitted to 213 from ED, will continue to monitor
[2021-09-01] VITALS (7 sets, daily range): BP systolic 79–110; BP diastolic 54–75; PULSE 62–105; RESP 16–24; TEMP 36.4–37.5; O2SAT 91–99; BMI 28.4
--- NOTE | 2021-09-01 08:40 | HMH.HP ---
*Admission Date: 08/31/21 *Chief complaint: Cough *History of present illness: 76-year-old female presented to the emergency department with 10 days of cough, weakness, mild shortness of breath. Patient had been seen in the office earlier the same week and treated with azithromycin. She continued to have a cough so came to the [facility] yesterday. Work-up revealed right-sided pneumonia and questionable left-sided pneumonia. Patient had mild hypoxia with O2 sats of 88% on room air and was admitted for supplemental oxygen support in addition to IV antibiotics due to failed outpatient therapy for community-acquired pneumonia. [facility] History I have reviewed the patient's past medical history: Yes Medical History: Reports:: Cerebrovascular Accident, Hypertension, Seizures Denies:: Cancer, Diabetes Mellitus Type 1, Diabetes Mellitus Type 2, Internal Pacemaker, Lung Disease, MRSA *Have you ever received a pneumonia vaccine?: No *Have you received a flu vaccine this season?: No Other Medical History: Reports: Other Laterality Cases: Bilateral: Lumpectomy Other Surgeries: Yes: Appendectomy, Colonoscopy, , Other. No: Pacemaker Amputation: No - *Social History Smoking Status: Former smoker (At least 1 pack/day for 30 years) Tobacco Type: cigarettes Alcohol Intake: never Alcohol Intake Frequency:: other Substance Use Type: denies use *Occupational Status:: retired Housing: house Household Members: spouse *Travel in the last 8 weeks: None Family Hx:: No significant family history Review of Systems - Constitutional Reports lack of energy, Denies body ache(s), Denies chills, Denies excessive sweating, Denies fatigue, Denies fever(s), Denies malaise - Eyes Denies itchy eyes - ENT Denies difficulty swallowing - *Cardiovascular Reports shortness of breath with activity, Denies chest pain, Denies chest pain at rest, Denies chest pain with activity - *Respiratory Reports change in phlegm color, Reports chest congestion, Reports cough - *Gastrointestinal Denies abdominal pain, Denies loose stools - *Genitourinary Denies absent period, Denies painful urination, Denies side pain - *Musculoskeletal Denies abnormal walking, Denies joint pain - Integumentary/Breasts Denies hair loss, Denies bleeding lesions - *Neurologic Denies abnormal hearing, Denies dizziness Meds Home Medications Medication Instructions Recorded Confirmed Type acebutolol 200 mg capsule 200 mg PO DAILY 07/13/18 08/25/18 History cyanocobalamin (vitamin B-12) 1,000 mcg PO DAILY 07/13/18 08/25/18 History 1,000 mcg tablet,extended release levothyroxine 25 mcg capsule 25 mcg PO DAILY 07/13/18 08/25/18 History oxybutynin chloride 10 mg 10 mg PO DAILY 07/13/18 08/25/18 History tablet,extended release 24 hr phenobarbital 32.4 mg tablet 32.4 mg PO BID 07/13/18 08/25/18 History phenytoin sodium extended 100 mg 100 mg PO BID 07/13/18 08/25/18 History capsule vitamins A,C,X-puvt-gjunqd 14,320 1 cap PO BID 07/13/18 08/25/18 History unit-226 mg-200 unit capsule [id number]/Sod Sulf,Bicarb,Cl/KCl 240 ml PO Q10M 08/03/18 08/25/18 History [Peg-3350 and Electrolytes Soln] Diphenoxylate HCl/Atropine 1 tab PO QIDP PRN 08/06/18 08/25/18 History [Lomotil 2.5mg tablet] Ergocalciferol (Vitamin D2) 50,000 unit PO DIRECTED 08/06/18 08/25/18 History [Vitamin D2] Lisinopril/Hydrochlorothiazide 1 tab PO DAILY 08/06/18 08/25/18 History [Lisinopril-Hctz 20-25 mg Tab] Omeprazole [Omeprazole 20mg 20 mg PO DAILY #30 cap 08/06/18 08/25/18 Rx Capsule] Allergies Allergy/AdvReac Type Severity Reaction Status Date / Time atorvastatin [ATORVASTATIN] Allergy Unknown NA-NAUSEA/V Verified 09/01/21 02:47 OMITING hydrochlorothiazide Allergy Unknown Verified 09/01/21 02:47 [From MAXZIDE] triamterene [From MAXZIDE] Allergy Unknown Verified 09/01/21 02:47 Exam Vital signs and Labs for Last 24 Hours: Temp Pulse Resp BP Pulse Ox 98.5
[2021-09-01 09:00] LABS: Basophils # 0.1 K/mm3 (0-0.2); Basophils % 0.9 % (0.1-2.0); Eosinophils # 0.1 K/mm3 (0.0-0.4); Eosinophils % 0.9 % (0.1-12.0); Hematocrit 42.4 % (37.0-47.0); Hemoglobin 13.8 g/dL (12.2-16.2); Lymphocytes # 1.6 K/mm3 (0.7-4.5); Lymphocytes % 13.9 % (10-50); Mean Corpuscular HGB Conc 32.4 g/dL (31.8-35.4); Mean Corpuscular Hemoglobin 32.7 pg (27.0-31.2); Mean Corpuscular Volume 100.9 fl (81-99); Mean Platelet Volume 8.8 fl (7.4-10.4); Monocytes # 0.8 K/mm3 (0.1-1.0); Monocytes % 6.4 % (1.7-9.3); Neutrophils # 9.2 K/mm3 (1.8-7.8); Neutrophils % 77.9 % (37.0-80.0); Platelet Count 200 K/mm3 (142-424); Red Blood Count 4.21 M/mm3 (4.20-5.40); Red Cell Distribution Width 13.8 % (11.5-17.5); White Blood Count 11.8 K/mm3 (4.8-10.8)
[2021-09-01 09:16] LABS: Chloride 102 mmol/L (98-107)
[2021-09-01 09:17] LABS: Potassium 4.5 mmoL/L (3.5-5.1); Sodium 141 mmol/L (136-145)
[2021-09-01 09:20] LABS: Anion Gap 16.5 mEq/L (5-15); Blood Urea Nitrogen 31 mg/dl (7-17); Calcium 9.6 mg/dl (8.4-10.2); Carbon Dioxide 27 mmol/L (22.0-30.0); Creatinine Clearance Estimated 30 mL/min (50-200); Estimated Glomerular Filt Rate 31 ml/min (>60); GFR (African American) 38 ML/MIN (>60); Glucose 142 mg/dl (74-100)
--- NOTE | 2021-09-01 14:58 | PC.NURSE ---
When going to give this pt her home medications that were reordered, pt stated she already took her meds. Pt was educated on how dangerous it could be if she were to take her medications more than what is prescribed and to only take medications nursing gives her while at the hospital. Pt verbalized understanding, home medications were locked in drawers, and meds on MAR were not given.
--- NOTE | 2021-09-01 18:24 | PC.NURSE ---
pt continues on 2L NC. Pt has used IS hourly this shift. IS @ best 750cc's. Pt has walked around room in independently throughout this shift. Pt's family member brought CPAP to pt's room this shift, nighttime RN will be notified. No other acute changes or complaints, will continue to monitor.
--- NOTE | 2021-09-01 20:19 | PC.NURSE ---
pt refused to take 2100 meds because she said she had taken all that was ordered this morning from home meds
[2021-09-02] VITALS (10 sets, daily range): BP systolic 98–126; BP diastolic 55–66; PULSE 75–103; RESP 16–21; TEMP 36.4–36.9; O2SAT 92–100; BMI 28.4
--- NOTE | 2021-09-02 05:14 | PC.NURSE ---
Addendum entered by Zee Will RN 09/02/21 05:17: has used IS t/o shift Original Note: pt A&Ox4, has rested intermittently t/o shift, has remained on 2L NC with O2 sats 97-99%, has not complained of any pain or SOA, does continue to have a cough, intermittently
--- NOTE | 2021-09-02 07:08 | HMH.ACPN2 ---
Internal Medicine - PN: Subj *Date: 09/02/21 *Time: 07:08 Interval history: Patient is remained stable. Overnight room air sats were 91%. Patient is continued to have a dry cough. Exam Vital signs and Labs for Last 24 Hours: Temp Pulse Resp BP Pulse Ox 98.5 F 75 20 115/55 L 97 09/02/21 03:43 09/02/21 06:17 09/02/21 03:43 09/02/21 03:43 09/02/21 06:17 Laboratory Results - last 24 hr 09/01/21 08:48: WBC 11.8 H, RBC 4.21, Hgb 13.8, Hct 42.4, MCV 100.9 H, MCH 32.7 H, MCHC 32.4, RDW 13.8, Plt Count 200, MPV 8.8, Neut % (Auto) 77.9, Lymph % (Auto) 13.9, [place] % (Auto) 6.4, Eos % (Auto) 0.9, Baso % (Auto) 0.9, Neut # (Auto) 9.2 H, Lymph # (Auto) 1.6, [place] # (Auto) 0.8, Eos # (Auto) 0.1, Baso # (Auto) 0.1 09/01/21 08:48: Sodium 141, Potassium 4.5, Chloride 102, Carbon Dioxide 27, Anion Gap 16.5 H, BUN 31 H, Creatinine 1.60 H D, Estimated Creat Clear 30, Estimated GFR 31 L, Est GFR ( Amer) 38 L D, Glucose 142 H, Calcium 9.6 I & O for Last 24 hours: Intake & Output 08/30/21 08/31/21 09/01/21 09/02/21 11:59 11:59 11:59 11:59 Intake Total 480 / 480 480 / 480 Balance 480 / 480 480 / 480 Weight 141 lb 3.2 oz 141 lb 2 oz Microbiology Reports for the Last 24 Hours: Microbiology 09/01/21 10:20 Sputum - Expectorated Sputum Gram Stain - Final Narrative: Patient appears comfortable. Lungs have some rhonchi especially on the right. Heart has a regular rate and rhythm. Assessment and Plan (1) Pneumonia Status: Acute Qualifiers: Pneumonia type: due to unspecified organism Laterality: bilateral Lung location: unspecified part of lung Qualified Code(s): J18.9 - Pneumonia, unspecified organism Category: Medical Code(s): J18.9 - Pneumonia, unspecified organism (2) History of stroke Status: Acute Category: Medical Code(s): Z86.73 - Personal history of transient ischemic attack (TIA), and cerebral infarction without residual deficits (3) Hypertension Status: Acute Category: Medical Code(s): I10 - Essential (primary) hypertension (4) Hypothyroidism Status: Acute Category: Medical Code(s): E03.9 - Hypothyroidism, unspecified (5) Obstructive sleep apnea Status: Acute Category: Medical Code(s): G47.33 - Obstructive sleep apnea (adult) (pediatric) (6) Former smoker Status: Acute Category: Social Hx Code(s): Z87.891 - Personal history of nicotine dependence - Assessment and plan all Dx Assessment and Plan for all problems:: 1. Continue IV antibiotics and measures to increase pulmonary toilet 2. Attempt to wean to room air today 3. Transition to oral steroids and continue aerosols
[2021-09-02 07:19] LABS: Eosinophils % 0.2 % (0.1-12.0); Lymphocytes # 1.3 K/mm3 (0.7-4.5); Monocytes # 0.3 K/mm3 (0.1-1.0); Red Cell Distribution Width 13.8 % (11.5-17.5)
[2021-09-02 07:25] LABS: Basophils % 0.3 % (0.1-2.0); Lymphocytes % 14.5 % (10-50); Mean Corpuscular HGB Conc 32.7 g/dL (31.8-35.4); Mean Corpuscular Hemoglobin 32.4 pg (27.0-31.2); Mean Corpuscular Volume 99.2 fl (81-99); Mean Platelet Volume 9.6 fl (7.4-10.4); Monocytes % 3.3 % (1.7-9.3); Neutrophils # 7.4 K/mm3 (1.8-7.8); Neutrophils % 81.6 % (37.0-80.0); Platelet Count 191 K/mm3 (142-424); Red Blood Count 3.74 M/mm3 (4.20-5.40)
[2021-09-02 07:27] LABS: Anion Gap 13.8 mEq/L (5-15); Blood Urea Nitrogen 35 mg/dl (7-17); Calcium 9.1 mg/dl (8.4-10.2); Carbon Dioxide 27 mmol/L (22.0-30.0); Chloride 103 mmol/L (98-107); Creatinine Clearance Estimated 40 mL/min (50-200); Estimated Glomerular Filt Rate 44 ml/min (>60); GFR (African American) 53 ML/MIN (>60); Glucose 135 mg/dl (74-100); Potassium 4.8 mmoL/L (3.5-5.1); Sodium 139 mmol/L (136-145)
[2021-09-02 08:01] LABS: Hemoglobin 12.1 g/dL (12.2-16.2)
[2021-09-03] VITALS: BP 113/61; PULSE 89; RESP 19; TEMP 36.7; O2SAT 96
[2021-09-03 04:00] VITALS: BP 120/66; PULSE 80; RESP 17; TEMP 36.7; O2SAT 98
--- NOTE | 2021-09-03 04:17 | PC.NURSE ---
Patient is A&Ox4. No complaints voiced to this RN. No acute changes noted. VSS, call light within reach, will continue to monitor.
[2021-09-03 05:08] VITALS: BMI 29.4
[2021-09-03 05:47] VITALS: PULSE 81; PULSE 82; O2SAT 94
[2021-09-03 06:08] LABS: Basophils # 0.1 K/mm3 (0-0.2); Basophils % 0.5 % (0.1-2.0); Eosinophils # 0.1 K/mm3 (0.0-0.4); Eosinophils % 1.3 % (0.1-12.0); Hemoglobin 12.2 g/dL (12.2-16.2); Lymphocytes # 2.5 K/mm3 (0.7-4.5); Lymphocytes % 22.5 % (10-50); Mean Corpuscular Hemoglobin 32.4 pg (27.0-31.2); Mean Corpuscular Volume 98.1 fl (81-99); Mean Platelet Volume 8.8 fl (7.4-10.4); Monocytes # 0.6 K/mm3 (0.1-1.0); Monocytes % 5.3 % (1.7-9.3); Neutrophils # 7.7 K/mm3 (1.8-7.8); Neutrophils % 70.4 % (37.0-80.0); Platelet Count 215 K/mm3 (142-424); Red Blood Count 3.77 M/mm3 (4.20-5.40); Red Cell Distribution Width 13.9 % (11.5-17.5)
[2021-09-03 06:13] LABS: Blood Urea Nitrogen 36 mg/dl (7-17); Calcium 9.1 mg/dl (8.4-10.2); Carbon Dioxide 28 mmol/L (22.0-30.0); Chloride 103 mmol/L (98-107); Creatinine Clearance Estimated 45 mL/min (50-200); Estimated Glomerular Filt Rate 48 ml/min (>60); GFR (African American) 58 ML/MIN (>60); Glucose 114 mg/dl (74-100); Sodium 140 mmol/L (136-145)
--- NOTE | 2021-09-03 07:22 | HMH.DCSUM ---
General - General Admission date:: 08/31/21 Discharge date: 09/03/21 HPI HPI: 76-year-old female presented to the emergency department with 10 days of cough, weakness, mild shortness of breath. Patient had been seen in the office earlier the same week and treated with azithromycin. She continued to have a cough so came to the [facility] yesterday. Work-up revealed right-sided pneumonia and questionable left-sided pneumonia. Patient had mild hypoxia with O2 sats of 88% on room air and was admitted for supplemental oxygen support in addition to IV antibiotics due to failed outpatient therapy for community-acquired pneumonia. Hospital Course Hospital Course: Patient was admitted for community-acquired pneumonia and placed on Rocephin and azithromycin protocol. On the morning of September 01 I added on Solu-Medrol intravenously for coarse rhonchi that were heard bilaterally along with patient's extensive smoking history suggestive of COPD. Patient responded well to treatment and on September 02 was able to be weaned to room air. Patient remained stable on room air for an additional 24 hours while increasing her activity level. On September 02 patient was transitioned from IV Solu-Medrol to oral prednisone. On September 03 patient was discharged home. Objective Vital signs: Temp Pulse Resp BP Pulse Ox 98.1 F 82 17 120/66 94 L 09/03/21 04:00 09/03/21 05:47 09/03/21 04:00 09/03/21 04:00 09/03/21 05:47 no acute distress - *Routine Respiratory Exam Present: CTA bilaterally - *Routine Cardiovascular Exam Present: RRR - *Routine Abdominal Exam Present: soft, normoactive bowel sounds. Absent: tenderness Results Labs on day of discharge: Labs from last 24 hours 09/03/21 09/03/21 09/02/21 05:39 05:39 06:40 WBC 11.0 H RBC 3.77 L Hgb 12.2 Hct 37.0 MCV 98.1 MCH 32.4 H MCHC 33.0 RDW 13.9 Plt Count 215 MPV 8.8 Neut % (Auto) 70.4 Lymph % (Auto) 22.5 [place] % (Auto) 5.3 Eos % (Auto) 1.3 Baso % (Auto) 0.5 Neut # (Auto) 7.7 Lymph # (Auto) 2.5 [place] # (Auto) 0.6 Eos # (Auto) 0.1 Baso # (Auto) 0.1 Sodium 140 139 Potassium 4.0 4.8 Chloride 103 103 Carbon Dioxide 28 27 Anion Gap 13.0 13.8 BUN 36 H 35 H Creatinine 1.10 H 1.20 H D Estimated Creat Clear 45 40 Estimated GFR 48 L 44 L Est GFR ( Amer) 58 L 53 L D Glucose 114 H 135 H Calcium 9.1 9.1 09/02/21 06:40 WBC 9.0 RBC 3.74 L Hgb 12.1 L D Hct 37.0 MCV 99.2 H MCH 32.4 H MCHC 32.7 RDW 13.8 Plt Count 191 MPV 9.6 Neut % (Auto) 81.6 H Lymph % (Auto) 14.5 [place] % (Auto) 3.3 Eos % (Auto) 0.2 Baso % (Auto) 0.3 Neut # (Auto) 7.4 Lymph # (Auto) 1.3 [place] # (Auto) 0.3 Eos # (Auto) 0.0 Baso # (Auto) 0.0 Sodium Potassium Chloride Carbon Dioxide Anion Gap BUN Creatinine Estimated Creat Clear Estimated GFR Est GFR ( Amer) Glucose Calcium Preliminary micro results at discharge 08/31/21 18:43 Blood Culture - Preliminary Blood NO GROWTH AFTER 48 HOURS 08/31/21 18:43 Blood Culture - Preliminary Blood NO GROWTH AFTER 48 HOURS DS: Diagnosis - Discharge Diagnosis (1) Pneumonia Status: Acute (2) History of stroke Status: Acute (3) Hypertension Status: Acute (4) Hypothyroidism Status: Acute (5) Obstructive sleep apnea Status: Acute (6) Former smoker Status: Acute Discharge Plan - Patient Discharge Instructions ACTIVITY: Continue current activity DIET: continue same diet Patient Instructions: Pneumonia-Adult, DI for Pneumonia -- Adult - Follow up Plan Follow up with: Donal Navarro MD [Staff Physician] - 09/05/21 11:00 am Disposition: Home, Self-Care Condition at discharge:: Stable Home Medications: Home Medications Medication Instructions Recorded Confirmed Type cyanocobalamin (vitamin B-12) 1,000 mcg PO DAILY 07/13/18 09/01/21
[2021-09-03 07:48] VITALS: BP 118/61; PULSE 98; RESP 19; TEMP 36.6; O2SAT 94
== END 2021-09-03 10:25 | disposition home or self-care (01) ==
LOC: UTC 18:08 → ER 18:14 → 2ND 18:33
PROVIDERS: Nurse Practitioner Family; Admitting Provider Emergency Medicine; Emergency Provider Student in an Organized Health Care Education/Training Program; PCP Nurse Practitioner Family; Visit Provider Family Medicine
DX: J18.9 Pneumonia, unspecified organism (principal); Z20.822 Contact with and (suspected) exposure to COVID-19; G40.909 Epilepsy, unspecified, not intractable, without status epilepticus; I10 Essential (primary) hypertension; E03.9 Hypothyroidism, unspecified; Z86.73 Personal history of transient ischemic attack (TIA), and cerebral infarction without residual deficits; Z87.891 Personal history of nicotine dependence; G47.33 Obstructive sleep apnea (adult) (pediatric)
CPT/HCPCS: G0378; 36415; 71046; 80048; 80053; 85025; 87040; 87070; 87205; 94640; 94761; 96374; 99284; C9803; J0456; U0003; U0005

== ENCOUNTER → 2022-03-13 12:03 | Outpatient (CLI) | payer MEDICARE, SELFPAY ==
--- NOTE | 2022-03-13 12:12 | XR_ITS ---
FINAL REPORT CLINICAL HISTORY: CERVICALGIA FINDINGS: CERVICAL SPINE Seven views were obtained. There is no acute fracture. There is no malalignment. There are moderate and severe degenerative changes. There are multilevel disc osteophyte complexes. The left neural foramen are suboptimally visualized. There is rightward curvature. IMPRESSION: Moderate and severe degenerative change. Reviewed, Interpreted and Dictated by Evens Miller III, MD Transcribed by Erik Garcias Authenticated by Evens Miller III, MD on 03/13/2022 01:02:01 PM [facility]
== END ==
PROVIDERS: PCP Nurse Practitioner Family; Visit Provider Nurse Practitioner Family
DX: M54.2 Cervicalgia (principal)
CPT/HCPCS: 72050

== ENCOUNTER → 2022-03-25 15:16 | Outpatient (POV) | payer MEDICARE, SELFPAY | PROVIDERS: Visit Provider Dermatology | DX: Z00.00 Encounter for general adult medical examination without abnormal findings (principal) ==

== ENCOUNTER 2025-02-13 13:52 | Outpatient (CLI) | payer MEDICARE, SELFPAY ==
--- OUTSIDE RECORDS SUMMARY | 2025-02-13 13:57 | XMS_ITS ---
Author Organization Unknown Immunizations Date Vaccine DateAdministered TimeAdministered VaccineCode Dose Strength Unit Formation Testing Operator DueDate CptCode CvxCode ManufacturerCode LocationCode AdministeredBy 12/15 00:00 :00 FLUZONE HD QUAD 12/15/2024 13:30:00 13:30:00 [id number] 0.5 mg 05/01/20 00:00:00 [id number] TAMI ARAIZA
--- NOTE | 2025-02-13 13:59 | XR_ITS ---
FINAL REPORT CLINICAL HISTORY: PAIN COMPARISON: 08/28/2016 FINDINGS: RIGHT ANKLE 3 views of the right ankle were obtained. There is no acute fracture or dislocation. The mortise is intact. There are some calcification of the plantar fascia. On the lateral view, there appears to be superior subluxation of the tarsal navicular relative to the distal talus and cuneiform. The subluxation is unchanged from the previous exam. There is diffuse soft tissue edema about the ankle, particularly laterally. IMPRESSION: Stable subluxation of the tarsal navicular. Calcification of the plantar fascia. Diffuse soft tissue edema. Reviewed, Interpreted and Dictated by Joshua Peacock MD Transcribed by Shirlene Ulrich Authenticated and . [facility]
--- NOTE | 2025-02-13 13:59 | XR_ITS ---
FINAL REPORT CLINICAL HISTORY: Pain, knot on plantar surface mid-foot COMPARISON: 08/28/2016 FINDINGS: RIGHT FOOT Three views demonstrate no acute fracture or dislocation. On the lateral view, there is a cavus deformity of the foot, which is similar to the previous exam. There is again noted to be superior subluxation of the tarsal navicular relative to the distal calcaneus and cuneiform. There is calcification of the plantar fascia. No acute soft tissue abnormality is seen. 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 Calcification of the plantar fascia. Reviewed, Interpreted and Dictated by Joshua Peacock MD Transcribed by Shirlene Ulrich Authenticated and [facility]
== END 2025-02-13 23:59 | disposition home or self-care (01) ==
LOC: RAD 13:56
PROVIDERS: PCP Nurse Practitioner; Visit Provider Nurse Practitioner
DX: M79.671 Pain in right foot (principal); M25.571 Pain in right ankle and joints of right foot
CPT/HCPCS: 73610; 73630